=== PATIENT | female | born 2005 | race Caucasian/White ===

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

== ENCOUNTER 2025-01-09 17:12 | Emergency (ER) | payer MEDICAID ==
[~2025-01-09] VITALS: Ht 170.2 cm; Wt 52.1 kg
[2025-01-09 17:16] VITALS: BP 109/54; PULSE 72; RESP 16; O2SAT 99
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
[2025-01-09] MEDS ORDERED: CYCL-1 PO (18:17)
[2025-01-09] MEDS: ibuprofen tablet 400 MG TABLET PO ONE (18:30)
[2025-01-09 18:32] VITALS: TEMP 98.1
== END 2025-01-09 18:33 | disposition home or self-care (01) ==
LOC: ER 17:13
DX: M54.2 Cervicalgia (principal); Z79.899 Other long term (current) drug therapy; V43.52XA Car driver injured in collision with other type car in traffic accident, initial encounter; Y93.89 Activity, other specified; Y92.89 Other specified places as the place of occurrence of the external cause; Y99.8 Other external cause status
CPT/HCPCS: 99283

== ENCOUNTER 2025-02-18 15:55 | Emergency (ER) | payer MEDICAID ==
[~2025-02-18] VITALS: Ht 170.2 cm; Wt 54.3 kg
[~2025-02-18 15:55] MED LIST: CYCL-1 PO
--- NOTE | 2025-02-18 15:58 | Physician Documentation ---
History of Present Illness ~ Stated Complaint: CP Time Seen by MD: 17:26 Primary Medical Doctor: [facility] 19-year-old female presents to the emergency department with report of severe chest pain. Notes that the pain is made worse with breathing. Medication Reconciliation Allergies: Coded Allergies: No Known Allergies (Unverified , 02/18/25) Scheduled Cyclobenzaprine* (Cyclobenzaprine*), 1 TAB PO Q8H Past Medical History Past Medical History: No Pertinent History Past Surgical History: noncontributory Lives with: Mother Lives In: Home Review of Systems ROS As stated above in the HPI, otherwise all systems are reviewed and negative. Physical Exam Physical Exam General: Alert, no apparent distress. Neck: Full range of motion. Respiratory: Lungs clear, no respiratory distress. Chest: No accessory muscle use. Cardiovascular: Regular rate and rhythm, no murmurs. Gastrointestinal: Soft, nontender, nondistended. Bowels sounds present. Extremities: Normal range of motion, no deformity. Neurologic: Oriented x4. Psychiatric: Normal mood and affect. Skin: Normal color, warm and dry. No edema, no ecchymosis. Progress Results/Orders Results/Orders Orders - TAMY HERNANDES NP Chest,Single View (02/18/25 16:05) Hs Troponin I W Calculations (02/18/25 17:57) Hs Troponin I W Calculations (02/18/25 18:57) Completed Orders - TAMY HERNANDES [employer] Cbc/Diff (02/18/25 15:57) Electrocardiogram (02/18/25 15:57) Chest,Single View (02/18/25 16:05) BMP (02/18/25 15:57) Hs Troponin I W Calculations (02/18/25 15:57) Lipase (02/18/25 15:58) Vital Signs 02/18/25 15:59 Temp 98.7 Pulse 84 Resp 18 B/P (MAP) 128/85 Pulse Ox 99 Laboratory Tests Test 02/18/25 16:07 White Blood Count 7.6 Red Blood Count 4.69 Hemoglobin 13.7 Hematocrit 40.9 Mean Corpuscular Volume 87.2 Mean Corpuscular Hemoglobin 29.3 Mean Corpuscular Hemoglobin Concent 33.6 Red Cell Distribution Width 13.3 Platelet Count 283 Mean Platelet Volume 8.9 Neutrophils (%) (Auto) 61.1 Lymphocytes (%) (Auto) 26.5 Monocytes (%) (Auto) 9.6 Eosinophils (%) (Auto) 2.3 Basophils (%) (Auto) 0.5 Neutrophils # (Auto) 4.6 Lymphocytes # (Auto) 2.0 Monocytes # (Auto) 0.7 Eosinophils # (Auto) 0.2 Basophils # (Auto) 0.0 CBC Comment Sodium Level 142 Potassium Level 4.0 Chloride Level 105 Carbon Dioxide Level 29.5 Anion Gap 8 Blood Urea Nitrogen 11 Creatinine 0.73 Estimated GFR/1.73 m2 > 90 BUN/Creatinine Ratio 15.1 Glucose Level 95 Calcium Level 9.5 Troponin I High Sensitivity < 4 L Troponin I High Sens Percent Delta Troponin I Hi Sens Absolute Change Albumin 3.9 Lipase 32 Chemistry Comments EKG/XRAY/CT/US/VASC/MRI Chest X-Ray : Additional Comments [place] [id number] DIAGNOSTIC RADIOLOGY Patient: CARIDAD SOLANO Medical Record: [id number] [facility] : 2005, Age: 19 Sex: Female Location: ER Patient Status: REG ER Service Date/Time: 02/18/251604 Ordering Physician: TAMY HERNANDES [employer] Exam: CHEST,SINGLE VIEW EXAM: DI CHEST,SINGLE VIEW HISTORY: CP COMPARISON: None TECHNIQUE: PA upright view of the chest was performed. FINDINGS: No pneumothorax, consolidative infiltrates, or pulmonary edema. The heart is not enlarged. No fractures are identified about the bony thorax. IMPRESSION: No acute intrathoracic process. Electronically Signed by:CAROLYNN BARLOW MD Date & Time: 02/18/251616 Dictated by: CAROLYNN BARLOW MD Dictation date and time: 10/08/25 1603 Primary Care Provider: NO PRIMARY CARE PROVIDER cc: TAMY HERNANDES NP ~ Medical Decision Making Differential Dx:Considerations: Include: angina, aortic dissection, chest wall pain, cholelithiasis, CHF, costochondritis, esophageal reflux/spasm, gastritis, herpes zoster, myocardial infarction, pericarditis, pleuritis, pancreatitis, pneumonia, pneumothorax, pulmonary embolus Departure Time of Disposition: 17:26 Disposition: 01 HOME / SELF CARE / HOMELESS Impression: Primary Impression: Chest wall pain Discharge Instructions: Chest Wall Pain Additional Instructions: Your EKG and labs were all normal. Your chest xray was normal. Pain in the chest made worse with breathing typically represents inflammation of the cartilage around the ribs. Take the prescribed Naproxen. Ice to the sore areas x 15 minutes four times a day. Followup with your primary care provider. Please return if worse. Referrals: NO PRIMARY CARE PROVIDER (PCP) Prescriptions Naproxen (Naproxen) 500 Mg Tablet 1 TAB PO Q12H, #20 TAB Prov: TAMY HERNANDES NP 02/18/25 Education Educated: Patient Educated regarding: diagnosis, treatment, prognosis, need for follow up Signature Scribe Signature: x Attestation: The note accurately reflects work and decisions made by me.Tamy Ramos NP 02/18/25 16:07 TAMY HERNANDES NP Feb 18, 2025 15:58
[2025-02-18 16:18] LABS: MEAN PLATELET VOLUME 8.9 FL (7.4-10.4); RED CELL DISTRIBUTION WIDTH 13.3 % (11.5-14.5)
--- NOTE | 2025-02-18 16:19 | RADIOLOGY REPORT ---
EXAM: DI CHEST,SINGLE VIEW HISTORY: CP COMPARISON: None TECHNIQUE: PA upright view of the chest was performed. FINDINGS: No pneumothorax, consolidative infiltrates, or pulmonary edema. The heart is not enlarged. No fractures are identified about the bony thorax. IMPRESSION: No acute intrathoracic process.
--- NOTE | 2025-02-18 16:20 | ELECTROCARDIOGRAPH REPORT ---
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
[2025-02-18 16:37] LABS: CREATININE 0.73 MG/DL (0.40-0.90); TOTAL CARBON DIOXIDE 29.5 MMOL/L (24-32); eCRCL 106 ML/MIN; eGFR > 90 ML/MIN
[2025-02-18] MEDS ORDERED: NAPR-56 PO (17:28)
[2025-02-18 18:26] VITALS: BP 110/76; PULSE 74; RESP 12; TEMP 97.9; O2SAT 99
== END 2025-02-18 19:06 | disposition home or self-care (01) ==
LOC: ER 15:55
DX: R07.89 Other chest pain (principal); Z79.899 Other long term (current) drug therapy
CPT/HCPCS: 36415; 71045; 80048; 83690; 84484; 85025; 93005; 99285